=== PATIENT | male | born 1960 ===

== ENCOUNTER 2019-12-05 06:20 | Day surgery (SDC) | payer OTHER ==
[2019-12-05] MEDS ORDERED: PERCOCET 5-3251 EACH PO (17:21)
[2019-12-05] MEDS ORDERED: NEURONTIN600 M1 PO (17:21)
[2019-12-05] MEDS ORDERED: COLACE100 MG PO (17:21)
== END 2019-12-05 18:03 | disposition home or self-care (01) ==
LOC: CIR.AMB 06:20
PROVIDERS: ATTEND Surgery
DX: K40.90 Unilateral inguinal hernia, without obstruction or gangrene, not specified as recurrent (principal)